=== PATIENT | male | born 1965 | race Caucasian/White ===

== ENCOUNTER → 2022-12-27 | Outpatient (CLI) | payer OTHER | LOC: RAD 09:23 | DX: M65.30 Trigger finger, unspecified finger (principal); R22.30 Localized swelling, mass and lump, unspecified upper limb ==

== ENCOUNTER → 2023-04-26 | Outpatient (CLI) | payer OTHER ==
[2023-04-26 08:53] LABS: ALBUMIN 4.4 g/dL (3.5-5.0)
[2023-04-26 08:54] LABS: CALCIUM 9.6 mg/dL (8.3-10.5)
[2023-04-26 08:57] LABS: TOTAL BILIRUBIN 0.75 mg/dL (0.2-1.2)
== END ==
LOC: LAB 08:19
PROVIDERS: Internal Medicine
DX: Z00.00 Encounter for general adult medical examination without abnormal findings (principal); Z12.5 Encounter for screening for malignant neoplasm of prostate

== ENCOUNTER → 2024-01-29 | Outpatient (CLI) | payer OTHER | LOC: RAD 15:05 | DX: M19.072 Primary osteoarthritis, left ankle and foot (principal) ==

== ENCOUNTER → 2024-04-29 | Outpatient (CLI) | payer OTHER ==
[2024-04-29 08:53] LABS: BASO # 0.02 K/mm3 (0.02-0.10); EOS # 0.09 K/mm3 (0.04-0.40); HEMOGLOBIN 16.2 g/dL (13.5-18.0); LYMPH# 0.95 K/mm3 (1.50-4.00); MEAN CELL VOLUME 88 fl (78-100); MEAN CORPUSCULAR HEMOGLOBIN 29 pg (27-31); MEAN CORPUSCULAR HGB CONC 32 g/dL (33-37); MEAN PLATELET VOLUME 9.3 fl (7.4-10.4); MONO # 0.32 K/mm3 (0.20-0.80); PLATELET COUNT 296 K/mm3 (130-400); RED BLOOD COUNT 5.69 M/mm3 (4.20-5.60); RED CELL DISTRIBUTION WIDTH 13.5 % (11.5-14.5); WHITE BLOOD COUNT 4.6 K/mm3 (4.8-10.8)
[2024-04-29 09:01] LABS: ALBUMIN 4.5 g/dL (3.5-5.0)
[2024-04-29 09:03] LABS: CALCIUM 10.3 mg/dL (8.3-10.5)
[2024-04-29 09:04] LABS: TOTAL PROTEIN 7.4 g/dL (6.4-8.3)
[2024-04-29 09:06] LABS: TOTAL BILIRUBIN 0.7 mg/dL (0.2-1.2)
[2024-04-29 09:11] LABS: MAGNESIUM 1.97 mg/dL (1.60-2.60)
[2024-04-30 00:42] LABS: TESTOSTERONE 592 ng/dL (221-716)
== END ==
LOC: LAB 08:38
PROVIDERS: Internal Medicine
DX: Z00.00 Encounter for general adult medical examination without abnormal findings (principal); Z12.5 Encounter for screening for malignant neoplasm of prostate; J45.20 Mild intermittent asthma, uncomplicated; F52.21 Male erectile disorder; R73.9 Hyperglycemia, unspecified; E78.2 Mixed hyperlipidemia; K90.9 Intestinal malabsorption, unspecified